=== PATIENT | male | born 1985 | race American Indian/Alaskan Native ===

== ENCOUNTER 2021-05-09 12:53 | Emergency (ER) | payer SELFPAY ==
--- NOTE | 2021-05-09 13:36 | Emergency Department Report ---
ED General Adult HPI - General Stated complaint: NAUSEA Time Seen by Provider: 05/09/21 13:27 Source: patient - History of Present Illness Initial comments: Patient is 35 years old male with no significant past medical history. Patient presented to the ER complaining of 2-day history of generalized body ache, nausea with no vomiting. Patient also complaining of crampy abdominal pain. Patient stated that he had generalized weakness yesterday but is better today. Patient denies any chest pain, shortness of breath, cough, fever or chills. - Related Data Allergies Allergy/AdvReac Type Severity Reaction Status Date / Time No Known Allergies Allergy Unverified 05/09/21 13:37 ED Review of Systems ROS: Stated complaint: NAUSEA Other details as noted in HPI Comment: All other systems reviewed and negative Constitutional: denies: chills, fever Respiratory: denies: cough, shortness of breath, SOB with exertion, SOB at rest, wheezing Cardiovascular: denies: chest pain, palpitations Gastrointestinal: abdominal pain, nausea, vomiting. denies: diarrhea, constipation Musculoskeletal: arthralgia, myalgia Neurological: denies: headache, weakness, numbness, paresthesias, confusion ED Physical Exam - General General appearance: alert, in no apparent distress - Head Head exam: Present: atraumatic, normocephalic, normal inspection - Eye Eye exam: Present: normal appearance, PERRL - ENT ENT exam: Present: normal exam, normal orophraynx, mucous membranes moist - Neck Neck exam: Present: normal inspection, full ROM. Absent: tenderness, meningismus - Respiratory Respiratory exam: Present: normal lung sounds bilaterally - Cardiovascular Cardiovascular Exam: Present: regular rate, normal rhythm, normal heart sounds - GI/Abdominal GI/Abdominal exam: Present: soft, normal bowel sounds. Absent: distended, tenderness, guarding, rebound, rigid, organomegaly, mass, bruit, pulsatile mass, hernia - Extremities Exam Extremities exam: Present: normal inspection, full ROM - Back Exam Back exam: Present: normal inspection, full ROM. Absent: CVA tenderness (R), CVA tenderness (L) - Neurological Exam Neurological exam: Present: alert, oriented X3, CN II-XII intact, normal gait, reflexes normal - Psychiatric Psychiatric exam: Present: normal mood - Skin Skin exam: Present: warm, intact, normal color ED Course Vital Signs 05/09/21 13:35 Temperature 98.7 F Pulse Rate 73 Respiratory 18 Rate Blood Pressure 121/71 [Left] O2 Sat by Pulse 98 Oximetry ED Medical Decision Making - Lab Data Result diagrams: 05/09/21 13:47 05/09/21 13:47 - Medical Decision Making Patient is 35 years old male with no significant past medical history. Patient presented to the ER complaining of 2-day history of generalized body ache, nausea with no vomiting. Patient also complaining of crampy abdominal pain. Patient stated that he had generalized weakness yesterday but is better today. Patient denies any chest pain, shortness of breath, cough, fever or chills. Labs reviewed and is unremarkable. Patient symptoms most likely viral syndrome. Patient advised to follow-up with his primary doctor in the next 2 to 3 days and to return to the ER if he develop any new symptoms. Critical care attestation.: If time is entered above; I have spent that time in minutes in the direct care of this critically ill patient, excluding procedure time. ED Disposition Clinical Impression: Viral syndrome, Acute nausea with nonbilious vomiting Disposition: 01 HOME / SELF CARE / HOMELESS Is pt being admited?: No Condition: Stable Instructions: Viral Illness, Adult Referrals: PRIMARY CARE, [Primary Care Provider] - 3-5 Days
[2021-05-09 13:37] VITALS: BP 121/71
[2021-05-09 13:59] LABS: Basophils % (Auto) 0.5 % (0.0-1.8); Eosinophils % (Auto) 0.1 % (0.0-4.3); Hematocrit 43.7 % (35.5-45.6); Hemoglobin 13.6 gm/dl (11.8-15.2); Lymphocytes # (Auto) 1.3 K/mm3 (1.2-5.4); Mean Corpuscular HGB Conc 31 % (32-34); Mean Corpuscular Volume 86 fl (84-94); Monocytes # (Auto) 0.8 K/mm3 (0.0-0.8); Monocytes % (Auto) 10.5 % (0.0-7.3); Red Blood Count 5.06 M/mm3 (3.65-5.03); Red Cell Distribution Width 13.4 % (13.2-15.2)
[2021-05-09 14:00] LABS: Platelet Count 142 K/mm3 (140-440)
[2021-05-09 14:19] LABS: Alanine Aminotransferase 61 units/L (7-56); Albumin 4.2 g/dL (3.9-5); BUN/Creatinine Ratio 12; Blood Urea Nitrogen 14 mg/dL (9-20); Calcium 9.2 mg/dL (8.4-10.2); Hemolysis Index 11
[2021-05-09 14:20] LABS: Bilirubin,Direct < 0.2 mg/dL (0-0.2)
[2021-05-09 15:44] LABS: Bilirubin,Urine NEG (Negative); Blood,Urine NEG (Negative); Color,Urine Yellow (Yellow); Mucus,Urine FEW /HPF; Protein,Urine <15 mg/dL mg/dL (Negative); Urobilinogen,Urine < 2.0 mg/dL (<2.0)
== END 2021-05-09 15:35 | disposition home or self-care (01) ==
LOC: ED 12:53
DX: B34.9 Viral infection, unspecified (principal); R11.2 Nausea with vomiting, unspecified
CPT/HCPCS: 36415; 80048; 80076; 81001; 83690; 85025; 99283